=== PATIENT | female | born 1990 | race Caucasian/White ===

== ENCOUNTER 2016-10-25 11:40 | Emergency (ER) | payer SELFPAY ==
--- NOTE | ~2016-10-25 | CR281 ---
[facility]. [facility] A Service of [facility] RADIOLOGY TEXT RESULTS PATIENT: EZ CORTEZ LOCATION: SED : 86 UNIT #: [id number] AGE: [address]: Yoselin Dinero SEX: F ORDER DR: [id number] [address] [address] [id number] MR#: [id number] Acc #: [id number] NAME: EZ CORTEZ : 1990 SEX: F STUDY DATE/TIME: 10/25/2016 UNIT: SED ROOM: STUDY DESCRIPTION: CR Wrist Min 3 View Lt Attending Physician: Yoselin Dinero Pa-C Ordering Physician: Yoselin Dinero Pa-C MEDICAL IMAGING REPORT This report is preliminary unless electronic signature is present. EXAM Left wrist 3 views 10/25/2016, 1202 hours HISTORY Patient awoke with wrist pain yesterday morning. No acute injury. Recent initiation of weight lifting program. COMPARISON None. FINDINGS AP, lateral and oblique views demonstrate normal bone density. There is no fracture, dislocation or degenerative change. IMPRESSION Negative left wrist. Dictated by... Henny Lee M.D. THIS IS AN ELECTRONICALLY VERIFIED REPORT Henny Lee M.D. at 10/26/2016 9:31 AM SHANDRA/angy TD: 10/25/2016 17:04 JOB #: [id number] MEDICAL IMAGING REPORT Page 1 of 1
== END 2016-10-25 12:49 | disposition home or self-care (01) ==
LOC: SED 11:40
DX: S63.502A Unspecified sprain of left wrist, initial encounter (principal); J45.909 Unspecified asthma, uncomplicated; Z88.1 Allergy status to other antibiotic agents; Z88.0 Allergy status to penicillin; Z91.013 Allergy to seafood; X50.0XXA Overexertion from strenuous movement or load, initial encounter; Y92.9 Unspecified place or not applicable
CPT/HCPCS: 29125; 73110; 99283